=== PATIENT | female | born 1980 | race Caucasian/White ===

== ENCOUNTER 2017-03-10 13:08 | Outpatient (CLI) | payer BC ==
[~2017-03-10] VITALS: Ht 167.6 cm; Wt 79.0 kg
[~2017-03-10 13:08] MED LIST: FER325 PO; FERR325C PO; PREN1TAB49 PO; PRENAT PO
[2017-03-10 13:12] VITALS: BP 120/76; PULSE 82; RESP 20; Ht 167.6 cm; Wt 79.0 kg
--- NOTE | 2017-03-10 15:48 | RADRPT ---
PROCEDURE: Obstetrical ultrasound CLINICAL INDICATION: Oligohydramnios TECHNIQUE: Multiple sonographic images of the pelvis were obtained. The images were reviewed on a PACS workstation. COMPARISON: None FINDINGS: The cervix is not well visualized. There is a single viable intrauterine gestation. Cardiac activity is present with 134 beats per minute. There is a vertex presentation. The placenta is anterior. There is no evidence for an abruption or placenta previa. There is a subjectively normal amount of amniotic fluid. Measurements were made in order to determine age. The results are as follows (cm): BPD =6.95 HC =25.94 AC =21.89 FL =5.45 Estimated gestational age by ultrasound of approximately 27 weeks, 6 days. The estimated date of delivery by ultrasound is 06/03/2017. Estimated gestational age by LMP of approximately 29 weeks, 4 days. The estimated date of delivery by LMP is 05/22/2017. EFW = 1082 grams (below the 3rd percentile) IMPRESSION: Single viable intrauterine gestation of approximately 27 weeks, 6 days . The estimated date of delivery is 06/03/2017 . Dating by ultrasound is within 12 days of dating by LMP. Cephalic presentation. Estimated weight is 1082 g which is below the 3rd percentile. RPTAT: EE Physician Lamine Date Time Electronically viewed and signed by Physician Lamine on 03/10/2017 15:47 /
--- NOTE | 2017-03-10 15:48 | RADRPT ---
PROCEDURE: US OB biophysical profile. CLINICAL INDICATION: Oligohydramnios. TECHNIQUE: Multiple sonographic images of the pelvis were obtained. The images were reviewed on a PACS workstation. COMPARISON: None FINDINGS: There is a viable intrauterine gestation. There is a normal amount of amniotic fluid with an YEMI = 9.0 cm. Cardiac activity is present with 136 beats per minute. The placenta is anterior. No evidence of placenta previa or abruption. Biophysical profile: movement 2/2 tone 2/2. breathing 2/2 YEMI 2/2 Total 11/03 IMPRESSION: Normal biophysical profile. Estimated gestational age: 29 weeks and 4 days RPTAT:AAJJ Physician Olman Date Time Electronically viewed and signed by Physician Olman on 03/10/2017 15:48 /
[2017-03-10] MEDS ORDERED: LACTATED RINGER'S 1,000 ML IV ONE (17:10)
--- NOTE | 2017-03-10 18:27 | PN ---
Triage Information Date/Time Reason for visit: 29 weeks 4 days referred from clinic for low YEMI of 5.8 Weeks of Gestation 29 weeks 4 days /Para Diabetes: none Hypertention: none Objective Vital Signs Date Time Temp Pulse Resp B/P Pulse Ox O2 Delivery O2 Flow Rate FiO2 03/10/17 13:12 97.9 82 20 120/76 Room Air Heart Rate: 130's Contractions: None Disposition: Discharge Assessment/Plan 36 years old 29 weeks 4 days referred from clinic for low YEMI of 5.8 patient underwent an ultrasound evaluation after receiving 1000 cc of IV fluid ,YEMI fede to 9 cm ,oral hydration recommended for tonight advised return to the hospital a.m. to repeat YEMI RADHA SNELL MD Mar 10, 2017 18:27
== END 2017-03-10 18:51 | disposition home or self-care (01) ==
LOC: OBT 13:08 → L-D 13:09 → OBT 18:51
PROVIDERS: ATTEND Obstetrics & Gynecology
DX: O41.8X30 Other specified disorders of amniotic fluid and membranes, third trimester, not applicable or unspecified (principal); O09.523 Supervision of elderly multigravida, third trimester; Z3A.29 29 weeks gestation of pregnancy
CPT/HCPCS: 76815; 76818; J7120; Z7500; G0463

== ENCOUNTER 2017-03-11 15:13 | Outpatient (CLI) | payer BC ==
[~2017-03-11] VITALS: Ht 167.6 cm; Wt 78.6 kg
[2017-03-11 15:29] VITALS: BMI 28.0
[2017-03-11 15:30] VITALS: BP 108/69; PULSE 71; RESP 18
[2017-03-11 15:34] VITALS: Ht 167.6 cm; Wt 78.6 kg
--- NOTE | 2017-03-11 16:57 | RADRPT ---
PROCEDURE: Obstetrical ultrasound for biophysical profile CLINICAL INDICATION: Biophysical profile. . Low amniotic fluid index TECHNIQUE: Obstetrical ultrasound of the uterus for biophysical profile. Transabdominal views are obtained. COMPARISON: US PELVIS 03/10/2017 FINDINGS: Single intrauterine gestation. Presentation: Cephalic. Placenta: Anterior. No evidence of placental abruption. No evidence of placenta previa. breathing movement = 2/2 tone = 2/2 motion = 2/2 YEMI = 2/2 YEMI = 8.4 cm, previously 9.0 heart rate: 137 beats per minute IMPRESSION: Single intrauterine gestation. Biophysical profile 11/03 RPTAT: AADD .Sunil Hooker MD, MD Date Time Electronically viewed and signed by .Sunil Hooker MD, on 03/11/2017 16:24 .B/
--- NOTE | 2017-03-11 17:42 | TRIAGE ---
OB Triage Datetime Report Generated by CPN: 03/11/2017 17:42 Datetime: 03/11/2017 17:11 Labor Evaluation Frequency: X2 Monitor Mode: External Duration (sec)2399: 40-50 Quality: Mild Resting Tone Pritchett: Relaxed Contraction Comments: PT DENIES FEELING UCs Heart Rate FHR Baseline Rate: 130 Monitor Mode: External US FHR Baseline Changes: No Baseline Change Variability: Moderate 6-25 bpm Accelerations: 15X15 Decelerations: None Category: Category I Datetime: 03/11/2017 16:22 Labor Evaluation Frequency: none Monitor Mode: External Resting Tone Pritchett: Relaxed Heart Rate FHR Baseline Rate: 130 Monitor Mode: External US FHR Baseline Changes: No Baseline Change Variability: Moderate 6-25 bpm Accelerations: 15X15 Decelerations: None Category: Category I Datetime: 03/11/2017 15:26 Stage of : OB Triage Assessment Type: Triage Maternal Assessment Level of Consciousness: Fully Conscious DTR's/Clonus: DTRs 2+; No Clonus Headache: Denies Blurred Vision: No Respiratory Effort: Unlabored; Regular Rhythm; Equal Expansion Breath Sounds, Left: Clear and Equal Breath Sounds, Right: Clear and Equal Nausea/Vomiting: Denies RUQ Epigastric Pain: Denies Lower Extremities Edema: None Degree: None Upper Extremities Edema: None Degree: None Facial Edema: None Temperature Route: Axillary Fall Risk Assessment History of Falling: (0) No Secondary Diagnosis: (0) No Ambulatory Aid: (0) Bedrest/Nurse Assist IV Therapy: (0) No Gait: (0) Normal/Bedrest/Immobile Mental Status: (0) Oriented to Own Ability Fall Score: 0 Fall Risk Score Definition: No Risk: No action required Labor Evaluation Frequency: none Monitor Mode: External Heart Rate FHR Baseline Rate: 130 Monitor Mode: External US FHR Baseline Changes: No Baseline Change Variability: Moderate 6-25 bpm Accelerations: 15X15 Decelerations: None Category: Category I Pain Assessment Pain Scale: 0 Pain Presence: None/Denies Pain Type: N/A Datetime: 03/11/2017 15:20 Time of Arrival: 03/11/2017 15:10 EGA: 29.5 Arrived By: Ambulatory Arrived From: Home Chief Complaint: pt is here to repeat YEMI and FM Movement: Present Contractions: Denies/Absent Rupture of Membranes: Denies Vaginal Bleeding: None Vaginal Discharge: Denies Abdominal Trauma: Not Applicable Patient Complaints: None Time Provider Notified: 03/11/2017 15:50 Provider Notified: Dr Narvaez Initial Plan: BPP, EFM Datetime: 03/10/2017 18:38 Labor Evaluation Frequency: 0 Monitor Mode: External Heart Rate FHR Baseline Rate: 130 Monitor Mode: External US FHR Baseline Changes: No Baseline Change Variability: Moderate 6-25 bpm Accelerations: 15X15 Decelerations: None Category: Category I Pain Assessment Pain Scale: 0 Pain Presence: None/Denies Pain Type: N/A Pain Goal: 0 Datetime: 03/10/2017 18:00 Labor Evaluation Frequency: 0 Monitor Mode: External Heart Rate FHR Baseline Rate: 130 Monitor Mode: External US FHR Baseline Changes: No Baseline Change Variability: Moderate 6-25 bpm Accelerations: 15X15 Decelerations: Variable Category: Category I Pain Assessment Pain Scale: 0 Pain Presence: None/Denies Pain Type: N/A Pain Goal: 0 Datetime: 03/10/2017 17:02 Labor Evaluation Frequency: 0 Monitor Mode: External Heart Rate FHR Baseline Rate: 130 Monitor Mode: External US FHR Baseline Changes: No Baseline Change Variability: Moderate 6-25 bpm Accelerations: 15X15 Decelerations: Early Category: Category I Pain Assessment Pain Scale: 0 Pain Presence: None/Denies Pain Type: N/A Pain Goal: 0 Datetime: 03/10/2017 15:59 Labor Evaluation Frequency: 0 Monitor Mode: External Heart Rate FHR Baseline Rate: 130 Monitor Mode: External US FHR Baseline Changes: No Baseline Change Variability: Moderate 6-25 bpm Accelerations: 15X15 Decelerations: None Category: Category I Pain Assessment Pain Scale: 0 Pain Presence: None/Denies Pain Type: N/A Pain Goal: 0 Datetime: 03/10/2017 15:02 Labor Evaluation Frequency: 0 Monitor Mode: External Heart Rate FHR Baseline Rate: 130 Monitor Mode: External US FHR Baseline Changes: No Baseline Change Variability: Moderate 6-25 bpm Accelerations: 15X15 Decelerations: None Category: Category I Pain Assessment Pain Scale: 0 Pain Presence: None/Denies Pain Type: N/A Pain Goal: 0 Datetime: 03/10/2017 14:32 Labor Evaluation Frequency: 0 Monitor Mode: External Heart Rate FHR Baseline Rate: 140 Monitor Mode: External US FHR Baseline Changes: No Baseline Change Variability: Moderate 6-25 bpm Accelerations: 15X15 Decelerations: None Category: Category I Pain Assessment Pain Scale: 0 Pain Presence: None/Denies Pain Type: N/A Pain Goal: 0 Datetime: 03/10/2017 13:15 Assessment Type: Triage EGA: 29.4 Maternal Assessment Level of Consciousness: Fully Conscious DTR's/Clonus: DTRs 2+; No Clonus Headache: Denies Blurred Vision: No Respiratory Effort: Unlabored; Regular Rhythm; Equal Expansion Breath Sounds, Left: Clear and Equal Breath Sounds, Right: Clear and Equal Nausea/Vomiting: Denies RUQ Epigastric Pain: Denies Lower Extremities Edema: None Degree: None Upper Extremities Edema: None Degree: None Facial Edema: None Fall Risk Assessment History of Falling: (0) No Secondary Diagnosis: (0) No Ambulatory Aid: (0) Bedrest/Nurse Assist IV Therapy: (0) No Gait: (0) Normal/Bedrest/Immobile Mental Status: (0) Oriented to Own Ability Fall Score: 0 Fall Risk Score Definition: No Risk: No action required Datetime: 03/10/2017 13:14 Time of Arrival: 03/10/2017 12:50 Chief Complaint: SENT FROM CLINIC FOR LOW YEMI Movement: Present Contractions: Denies/Absent Rupture of Membranes: Denies Vaginal Discharge: Denies Recent Sexual Intercouse: Denies Abdominal Trauma: Not Applicable Patient Complaints: Other Initial Plan: EFM Datetime: 03/10/2017 13:10 Stage of : OB Triage Monitor Mode: External Monitor Mode: External US Pain Assessment Pain Scale: 0 Pain Presence: None/Denies Pain Type: N/A Pain Goal: 0
--- NOTE | 2017-03-11 19:45 | CONS ---
Date/Time of Note Date/Time of Note DATE: 03/11/17 TIME: 19:38 Consultation Date/Type/Reason Admit Date/Time March 11, 2017 OB triage consult Patient developed gestational diabetes mellitus during this and recently on ultrasound study a low YEMI was detected. Her course other than was pretty normal sofar. her blood type A Rh+, hepatitis B surface antigen, HIV ,RPR ,Chlamydia and gonorrhea were all negative. she is immune to rubella , yesterday in her clinic the YEMI was 5.8 however later in the hospital was reported 9 cm. Today she is here for further follow-up, on examination her general vital signs are normal; with blood pressure of 108/ 69, pulse rate 71 respiration 18,, and temperature 98.5, She does not have much of a contraction, abdomen is soft heart tone is normal with fairly good variability no decelerations Constitutional: No chills, No diaphoresis, No disoriented, No febrile, No improved, No no complaints, No other, No poor po, No requiring IVF, No requiring O2 Eyes: No discharge, No no complaints, No other, No pain, No redness, No visual change ENT: No bleeding, No congestion, No discharge, No dysphagia, No no complaints, No other, No pain, No sore throat Respiratory: No cough, No no complaints, No other, No pain, No pleuritic pain, No shortness of breath, No sputum, No wheezing Cardiovascular: No chest pain, No edema, No lightheadedness, No no complaints, No orthopenea, No other, No palpitations, No paroxysmal nocturnal dyspnea Gastrointestinal: No blood, No constipation, No decreased appetite, No diarrhea , No flatus, No nausea, No no complaints, No other, No pain, No passing stool, No vomiting Genitourinary: other (Due to the fact that she did not have any contractions pelvic examination was not performed), No bleeding, No discharge, No dysuria, No flank pain, No hematuria, No no complaints Musculoskeletal: No back pain, No bone/joint pain, No neck pain, No no complaints, No other, No restricted range of motion, No swelling Skin: No bruising, No erythema, No laceration, No no complaints, No other, No pruritis, No rash, No skin lesions Neurologic: other (Knee-jerk reflex was normal), No confusion, No dizziness, No focal-weakness, No headache, No no complaints , No seizure, No syncope Endocrine: other (She developed gestational diabetes mellitus), No dry skin, No no complaints, No polydypsia, No polyuria, No temp intolerance Lymphatic: No adenopathy, No lymphadema, No no complaints, No other, No tender nodes Psychological: No anxiety, No confusion, No depression, No nl mood/affect, No no complaints, No other, No suicidal Additional Comments On ultrasound study ; the report is a viable intrauterine gestation with heartbeat of 136/min, placenta is anterior, no evidence evidence of previa ,her amniotic fluid index was 9.0 cm biophysical profile 11/03 and estimated gestational age was reported 29 weeks and 4 days. With these finding patient was discharged home; to do kick count and to return to the [facility] for follow-up. End of dictation Social History Smoking Status: Never smoker Exam/Review of Systems Vital Signs Vitals Vital Signs Date Time Temp Pulse Resp B/P Pulse Ox O2 Delivery O2 Flow Rate FiO2 03/11/17 15:30 98.5 71 18 108/69 Room Air KRAIG MARY MD Mar 11, 2017 19:45
== END 2017-03-11 17:40 | disposition home or self-care (01) ==
LOC: OBT 15:13 → L-D 15:15 → OBT 17:40
PROVIDERS: ATTEND Obstetrics & Gynecology
DX: Z36.2 Encounter for other antenatal screening follow-up (principal); O41.8X30 Other specified disorders of amniotic fluid and membranes, third trimester, not applicable or unspecified; O09.513 Supervision of elderly primigravida, third trimester; Z3A.29 29 weeks gestation of pregnancy
CPT/HCPCS: 76818; Z7500; G0463

== ENCOUNTER 2017-03-13 10:02 | Outpatient (CLI) | payer BC ==
[~2017-03-13] VITALS: Ht 167.6 cm; Wt 79.4 kg
[~2017-03-13 10:02] MED LIST changes: -FER325 PO; -PRENAT PO
[2017-03-13 10:15] VITALS: BP 126/69; PULSE 90; RESP 20
[2017-03-13 10:17] VITALS: Ht 167.6 cm; Wt 79.4 kg
--- NOTE | 2017-03-13 10:56 | RADRPT ---
PROCEDURE: US OB biophysical profile. CLINICAL INDICATION: Decreased movements. Low amniotic fluid. TECHNIQUE: Multiple sonographic images of the pelvis were obtained. The images were reviewed on a PACS workstation. COMPARISON: 03/11 and 03/10/2017 FINDINGS: There is a viable intrauterine gestation. There is a low normal amount of amniotic fluid with an YEMI = 9.7 cm. Cardiac activity is present with 154 beats per minute. The placenta is anterior. No evidence of placenta previa or abruption. Biophysical profile: movement 2/2 tone 2/2. breathing 2/2 YEMI 2/2 Total 11/03 IMPRESSION: Normal biophysical profile. Estimated gestational age: 30 weeks and 0 days RPTAT:AAJJ Physician Olman Date Time Electronically viewed and signed by Physician Olman on 03/13/2017 10:55 /
--- NOTE | 2017-03-13 13:07 | TRIAGE ---
OB Triage Datetime Report Generated by CPN: 03/13/2017 13:06 Datetime: 03/13/2017 12:05 Stage of : OB Triage Datetime: 03/13/2017 11:50 Stage of : OB Triage Datetime: 03/13/2017 11:00 Labor Evaluation Frequency: 0 Heart Rate FHR Baseline Rate: 135 Monitor Mode: External US FHR Baseline Changes: No Baseline Change Variability: Moderate 6-25 bpm Accelerations: 15X15 Decelerations: None Category: Category I Vaginal Exam Membrane Status: Intact Datetime: 03/13/2017 10:10 Maternal Assessment Level of Consciousness: Fully Conscious Headache: Denies Blurred Vision: No Nausea/Vomiting: Denies RUQ Epigastric Pain: Denies Facial Edema: None Labor Evaluation Frequency: 0 Monitor Mode: External Heart Rate FHR Baseline Rate: 135 Monitor Mode: External US FHR Baseline Changes: No Baseline Change Variability: Moderate 6-25 bpm Accelerations: 15X15 Decelerations: None Category: Category I Pain Assessment Pain Scale: 0 Pain Presence: None/Denies Vaginal Exam Membrane Status: Intact Datetime: 03/13/2017 10:04 Time of Arrival: 03/13/2017 10:00 EGA: 30.0 Arrived By: Ambulatory Arrived From: Home Chief Complaint: f/u nst /yemi; YEMI from 03/11/17 WAS 8.4 CM Movement: Present Rupture of Membranes: Denies Vaginal Bleeding: None Vaginal Discharge: Denies Abdominal Trauma: Not Applicable Patient Complaints: None Time Provider Notified: 03/13/2017 12:05 Provider Notified: CHANNING/FOROOHAR Initial Plan: NST/YEMI Datetime: 03/11/2017 15:26 Fall Risk Assessment Fall Score: 0 Fall Risk Score Definition: No Risk: No action required Datetime: 03/11/2017 15:20 EGA: 29.5 Datetime: 03/10/2017 13:15 EGA: 29.4 Fall Risk Assessment Fall Score: 0 Fall Risk Score Definition: No Risk: No action required
--- NOTE | 2017-03-13 13:25 | PN ---
Triage Information Date/Time Reason for visit: Oligohydramnios Weeks of Gestation 30 weeks /Para Diabetes: none Hypertention: none Objective Vital Signs Date Time Temp Pulse Resp B/P Pulse Ox O2 Delivery O2 Flow Rate FiO2 03/13/17 10:15 97.5 90 20 126/69 Room Air Heart Rate: 130's Contractions: None Assessment/Plan This is a 36 years old female , 30 weeks presented to triage unit to repeat ultrasound due to low YEMI ,today's YEMI 9.7, cm biophysical profile 11/03 , patient discharged home with instructions of forced fluids intake. Return to triage unit in 2 days to repeat YEMI. RADHA SNELL MD Mar 13, 2017 13:24
== END 2017-03-13 12:50 | disposition home or self-care (01) ==
LOC: OBT 10:02 → L-D 10:03 → OBT 12:50
PROVIDERS: ATTEND Obstetrics & Gynecology
DX: O41.03X0 Oligohydramnios, third trimester, not applicable or unspecified (principal); Z3A.30 30 weeks gestation of pregnancy
CPT/HCPCS: 76816

== ENCOUNTER 2017-03-16 08:18 | Outpatient (CLI) | END 2017-03-16 09:55 | disposition home or self-care (01) ==

== ENCOUNTER 2017-04-08 16:15 | Outpatient (CLI) | END 2017-04-08 17:55 | disposition home or self-care (01) ==

== ENCOUNTER 2017-04-20 15:15 | Inpatient (IN) | END 2017-04-25 15:10 | disposition home or self-care (01) | DRG 765 ==